=== PATIENT | female | born 1995 | race Caucasian/White ===

== ENCOUNTER 2020-12-27 15:25 | Emergency (ER) | payer BC ==
[2020-12-27 17:59] LABS: HEMOGLOBIN 13.2 gm/dl (12.3-15.3); RED BLOOD COUNT 4.54 M/UL (4.00-5.10); WHITE BLOOD COUNT 9.1 K/UL (4.5-11.0)
[2020-12-27 18:17] LABS: BUN/CREATININE RATIO 23 (0-10)
== END 2020-12-27 19:51 | disposition home or self-care (01) ==
LOC: ER1 15:25
PROVIDERS: Physician Assistant Medical
DX: M25.512 Pain in left shoulder (principal); I10 Essential (primary) hypertension
CPT/HCPCS: 71046; 73030; 80053; 81001; 82550; 82553; 83874; 84484; 84703; 85007; 85027; 87086; 93005; 99284